=== PATIENT | female | born 1950 | race Caucasian/White ===

== ENCOUNTER 2017-05-24 10:41 | Inpatient (IN) | payer OTHER ==
[~2017-05-24] VITALS: Ht 167.6 cm; Wt 88.7 kg
[2017-05-24 11:24] LABS: HEMATOCRIT 44.3 % (34.6-47.8); HEMOGLOBIN 15.4 g/dL (11.7-16.4); WHITE BLOOD COUNT 5.5 x10^3/uL (3.4-10)
[2017-05-24] MEDS ORDERED: ASPIRIN 81 MG TABLET CHEW ONE (11:35)
[2017-05-24 11:36] LABS: ASPARTATE AMINO TRANSFERASE 11 U/L (15-37); BLOOD UREA NITROGEN 18 mg/dL (7-18)
[2017-05-24] MEDS ORDERED: ASPIRIN 325 MG TABLET PO STA (11:48)
[2017-05-24] MEDS ORDERED: ASPIRIN 325 MG TABLET ONE (12:02)
[2017-05-24 13:42] VITALS: BP 153/94
[2017-05-24] MEDS ORDERED: DIPHENHYDRAMINE 50 MG/ML, 1ML IVPush ONE (14:00)
[2017-05-24 14:30] VITALS: BP 167/99
[2017-05-24] MEDS: SODIUM CHLORIDE 0.9% 1,000 ML IV SCH (14:33)
[2017-05-24 14:40] VITALS: BP 153/94
[2017-05-24] MEDS ORDERED: DOCUSATE 100 MG CAPSULE PO PRN (15:00)
[2017-05-24] MEDS ORDERED: POLYETHYLENE GLYCOL 17 GM PACKET PO PRN (15:00)
[2017-05-24] MEDS ORDERED: MECLIZINE 12.5 MG TABLET PO PRN (15:00)
[2017-05-24] MEDS ORDERED: hydrALAzine 20 MG/ML, 1ML IV PRN (15:00)
[2017-05-24] MEDS ORDERED: ONDANSETRON ODT 4 MG PO PRN (15:00)
[2017-05-24] MEDS: ENOXAPARIN 40 MG/0.4 ML SQ SCH (15:00)
[2017-05-24] MEDS ORDERED: ONDANSETRON 2MG/ML, 2ML IVPush PRN (15:00)
[2017-05-24] MEDS ORDERED: BISACODYL 10 MG SUPP PR PRN (15:00)
[2017-05-24] MEDS ORDERED: GADOBUTROL 10 MMOL/10 ML VIAL ONE (15:15)
[2017-05-24] MEDS: INSULIN ASPART 100 UNITS/ML, PEN SQ-INSULIN SCH ×2 (16:00→21:00)
[2017-05-24 16:54] LABS: IS PT STATUS REG ER OR PRE ER? NO
[2017-05-24 20:00] VITALS: BP 130/81
[2017-05-24] MEDS: ATORVASTATIN 20 MG TABLET PO SCH (21:00)
[2017-05-25] MEDS: SODIUM CHLORIDE 0.9% 1,000 ML IV SCH ×2 (01:19→10:10)
[2017-05-25 01:41] VITALS: BP 119/66
[2017-05-25 05:18] LABS: DAU SCREEN DISCLAIMER
[2017-05-25 05:46] LABS: BLOOD UREA NITROGEN 16 mg/dL (7-18)
[2017-05-25 05:48] LABS: HEMATOCRIT 40.4 % (34.6-47.8); HEMOGLOBIN 13.8 g/dL (11.7-16.4); WHITE BLOOD COUNT 4.8 x10^3/uL (3.4-10)
[2017-05-25 06:32] VITALS: BP 137/84
[2017-05-25] MEDS: INSULIN ASPART 100 UNITS/ML, PEN SQ-INSULIN SCH ×4 (07:00→21:00)
[2017-05-25] MEDS: ACETAMINOPHEN 325 MG TABLET PO PRN ×2 (08:46→20:38)
[2017-05-25] MEDS ORDERED: [UNRECOGNIZED DRUG - REMARK] MC SCH (09:30)
[2017-05-25] MEDS ORDERED: LORazepam 2 MG/ML, 1ML IVPush ONE (13:00)
[2017-05-25 13:07] VITALS: BP 150/91
[2017-05-25] MEDS: LISINOPRIL 5 MG TABLET PO SCH (15:00)
[2017-05-25] MEDS: ENOXAPARIN 40 MG/0.4 ML SQ SCH (16:05)
[2017-05-25] MEDS: INSULIN DETEMIR 100 UNITS/ML, PEN SQ-INSULIN SCH (17:56)
[2017-05-25 19:34] VITALS: BP 151/105
[2017-05-25] MEDS ORDERED: GADOBUTROL 7.5 MMOL/7.5 ML PFS ONE (19:44)
[2017-05-25] MEDS: ATORVASTATIN 20 MG TABLET PO SCH (20:33)
[2017-05-25] MEDS ORDERED: INSULIN ASPART 100 UNITS/ML, PEN SQ-INSULIN ONE (21:30)
[2017-05-26] MEDS: SODIUM CHLORIDE 0.9% 1,000 ML IV SCH ×3 (01:49→23:45)
[2017-05-26 02:01] VITALS: BP 127/79
[2017-05-26] MEDS: ASPIRIN 81 MG TABLET EC PO SCH (05:49)
[2017-05-26 07:00] VITALS: BP 150/99
[2017-05-26] MEDS: INSULIN DETEMIR 100 UNITS/ML, PEN SQ-INSULIN SCH ×2 (08:55→18:38)
[2017-05-26] MEDS: INSULIN ASPART 100 UNITS/ML, PEN SQ-INSULIN SCH ×4 (08:56→23:02)
[2017-05-26] MEDS: OMEGA-3/FISH OIL CAPSULE PO SCH (08:57)
[2017-05-26] MEDS: LISINOPRIL 5 MG TABLET PO SCH (09:00)
[2017-05-26] MEDS: ACETAMINOPHEN 325 MG TABLET PO PRN (10:29)
[2017-05-26] MEDS ORDERED: LORazepam 2 MG/ML, 1ML IVPush ONE (12:30)
[2017-05-26 12:40] VITALS: BP 188/112
[2017-05-26 13:55] VITALS: BP 166/81
[2017-05-26] MEDS: ENOXAPARIN 40 MG/0.4 ML SQ SCH (15:45)
[2017-05-26 20:00] VITALS: BP 167/94
[2017-05-26] MEDS ORDERED: INSULIN ASPART 100 UNITS/ML, PEN SQ-INSULIN ONE (22:30)
[2017-05-26] MEDS: ATORVASTATIN 20 MG TABLET PO SCH (23:40)
[2017-05-26] MEDS: METOPROLOL TARTRATE 25 MG TABLET PO SCH (23:41)
[2017-05-26] MEDS: LOSARTAN 50MG TABLET PO SCH (23:41)
[2017-05-26] MEDS: LORazepam 1MG TABLET PO PRN (23:55)
[2017-05-27 02:00] VITALS: BP 158/86
[2017-05-27] MEDS ORDERED: INSULIN DETEMIR 100 UNITS/ML, PEN SQ-INSULIN SCH (04:00)
[2017-05-27] MEDS: METOPROLOL TARTRATE 25 MG TABLET PO SCH ×2 (05:38→18:43)
[2017-05-27] MEDS: ASPIRIN 81 MG TABLET EC PO SCH (05:38)
[2017-05-27 05:46] LABS: BLOOD UREA NITROGEN 17 mg/dL (7-18)
[2017-05-27 07:23] VITALS: BP 139/77
[2017-05-27] MEDS: LOSARTAN 50MG TABLET PO SCH (09:15)
[2017-05-27] MEDS: OMEGA-3/FISH OIL CAPSULE PO SCH (09:15)
[2017-05-27] MEDS: INSULIN DETEMIR 100 UNITS/ML, PEN SQ-INSULIN SCH ×2 (09:16→20:55)
[2017-05-27] MEDS: INSULIN ASPART 100 UNITS/ML, PEN SQ-INSULIN SCH ×4 (09:17→20:55)
[2017-05-27 13:02] VITALS: BP 126/84
[2017-05-27] MEDS: SODIUM CHLORIDE 0.9% 1,000 ML IV SCH (14:00)
[2017-05-27] MEDS: ENOXAPARIN 40 MG/0.4 ML SQ SCH (16:32)
[2017-05-27 18:45] VITALS: BP 172/87
[2017-05-27] MEDS: LORazepam 1MG TABLET PO PRN (20:54)
[2017-05-27] MEDS: ATORVASTATIN 20 MG TABLET PO SCH (20:54)
[2017-05-28] MEDS: SODIUM CHLORIDE 0.9% 1,000 ML IV SCH ×2 (01:56→09:24)
[2017-05-28 02:10] VITALS: BP 157/88
[2017-05-28] MEDS: METOPROLOL TARTRATE 25 MG TABLET PO SCH (05:56)
[2017-05-28] MEDS: ASPIRIN 81 MG TABLET EC PO SCH (05:56)
[2017-05-28 06:50] VITALS: BP 165/78
[2017-05-28] MEDS: OMEGA-3/FISH OIL CAPSULE PO SCH (09:26)
[2017-05-28] MEDS: LOSARTAN 50MG TABLET PO SCH (09:26)
[2017-05-28] MEDS: INSULIN ASPART 100 UNITS/ML, PEN SQ-INSULIN SCH ×4 (09:27→20:11)
[2017-05-28] MEDS: INSULIN DETEMIR 100 UNITS/ML, PEN SQ-INSULIN SCH ×2 (09:27→20:11)
[2017-05-28] MEDS: LORazepam 1MG TABLET PO PRN ×2 (09:36→20:10)
[2017-05-28 13:24] VITALS: BP 167/94
[2017-05-28] MEDS: ENOXAPARIN 40 MG/0.4 ML SQ SCH (14:45)
[2017-05-28 18:34] VITALS: BP 145/90
[2017-05-28] MEDS: ATORVASTATIN 20 MG TABLET PO SCH (20:10)
[2017-05-28] MEDS ORDERED: INSULIN ASPART 100 UNITS/ML, PEN SQ-INSULIN ONE (21:30)
[2017-05-29 03:50] VITALS: BP 185/102
[2017-05-29] MEDS ORDERED: hydrALAzine 20 MG/ML, 1ML IV PRN (04:30)
[2017-05-29] MEDS: ASPIRIN 81 MG TABLET EC PO SCH (04:46)
[2017-05-29 07:00] VITALS: BP 171/88
[2017-05-29] MEDS: ACETAMINOPHEN 325 MG TABLET PO PRN (07:25)
[2017-05-29] MEDS: OMEGA-3/FISH OIL CAPSULE PO SCH (08:38)
[2017-05-29] MEDS: LOSARTAN 50MG TABLET PO SCH (08:38)
[2017-05-29] MEDS: INSULIN DETEMIR 100 UNITS/ML, PEN SQ-INSULIN SCH (08:39)
[2017-05-29] MEDS: INSULIN ASPART 100 UNITS/ML, PEN SQ-INSULIN SCH ×2 (08:40→11:00)
[2017-05-29] MEDS ORDERED: INSU100I28 SQ-INSULIN (09:57)
[2017-05-29] MEDS ORDERED: DOCU-131 PO (09:57)
[2017-05-29] MEDS ORDERED: HYDR12.53 PO (09:57)
[2017-05-29] MEDS ORDERED: ATOR20TA9 PO (09:57)
[2017-05-29] MEDS ORDERED: INSU100I18 SQ-INSULIN (09:57)
[2017-05-29] MEDS ORDERED: LOSA50TA2 PO (09:57)
[2017-05-29] MEDS ORDERED: ASPI-621 PO (09:57)
[2017-05-29] MEDS ORDERED: PNEUMOCOCCAL 23 VACCINE IM-VACC ONE (11:30)
[2017-05-29] MEDS ORDERED: LORA-446 PO (12:39)
== END 2017-05-29 12:30 | disposition home or self-care (01) | DRG 60 ==
LOC: ED 11:48 → EDIP 11:49 → ED 11:57 → 4WST 13:07 → DCLOUNGE 05-29 12:15
PROVIDERS: ADMIT Hospitalist; ATTEND Hospitalist
PROC: 5A09357 Assistance with Respiratory Ventilation, Less than 24 Consecutive Hours, Continuous Positive Airway Pressure (ICD-10-PCS; principal; 2017-05-25)
PROC: 5A09357 Assistance with Respiratory Ventilation, Less than 24 Consecutive Hours, Continuous Positive Airway Pressure (ICD-10-PCS; 2017-05-26)
PROC: 5A09357 Assistance with Respiratory Ventilation, Less than 24 Consecutive Hours, Continuous Positive Airway Pressure (ICD-10-PCS; 2017-05-28)
PROC: 5A09357 Assistance with Respiratory Ventilation, Less than 24 Consecutive Hours, Continuous Positive Airway Pressure (ICD-10-PCS; 2017-05-29)
DX: G35 Multiple sclerosis (principal); R13.10 Dysphagia, unspecified; E11.9 Type 2 diabetes mellitus without complications; E78.1 Pure hyperglyceridemia; F41.0 Panic disorder [episodic paroxysmal anxiety]; F80.81 Childhood onset fluency disorder; I10 Essential (primary) hypertension; M21.371 Foot drop, right foot; M50.30 Other cervical disc degeneration, unspecified cervical region; R27.0 Ataxia, unspecified; Z79.4 Long term (current) use of insulin; Z82.49 Family history of ischemic heart disease and other diseases of the circulatory system; Z91.14 Patient's other noncompliance with medication regimen; Z91.041 Radiographic dye allergy status; Z90.710 Acquired absence of both cervix and uterus
CPT/HCPCS: 36415; 70450; 70544; 70547; 70553; 72156; 72157; 80047; 80048; 80053; 80061; 80307; 81003; 82947; 82962; 83036; 83735; 84100; 84443; 84484; 85025; 85520; 85610; 85651; 85730; 90732; 93306; A9585; J1650; J1815; J2930; 92523-GN; G0479; J0360; J2060; J7030

== ENCOUNTER 2017-11-07 13:05 | Inpatient (IN) | payer OTHER ==
[~2017-11-07] VITALS: Ht 167.6 cm; Wt 91.0 kg
[~2017-11-07 13:05] MED LIST: ASPI-621 PO; ATOR20TA9 PO; DOCU-131 PO; HYDR12.53 PO; INSU100I18 SQ-INSULIN; INSU100I28 SQ-INSULIN; LORA-446 PO; LOSA50TA2 PO
[2017-11-07] MEDS ORDERED: SODIUM CHLORIDE 0.9% 1,000 ML IV ONE (14:13)
[2017-11-07] MEDS ORDERED: LORazepam 2 MG/ML, 1ML IVPush ONE (14:30)
[2017-11-07] MEDS ORDERED: SODIUM CHLORIDE FLUSH 10ML SYR IVF ONE (14:30)
[2017-11-07] MEDS ORDERED: LORazepam 2 MG/ML, 1ML ONE (14:35)
[2017-11-07 14:41] LABS: ALANINE AMINOTRANSFERASE 35 U/L (12-78); ALBUMIN 3.5 g/dL (3.4-5.0); ANION GAP 10 mmol/L (5-15); CALCIUM 9.1 mg/dL (8.5-10.1); CHLORIDE 102 mmol/L (98-107); CREATININE 0.96 mg/dL (0.55-1.02)
[2017-11-07 14:43] LABS: ALKALINE PHOSPHATASE 73 U/L (45-117); BILIRUBIN,TOTAL 0.4 mg/dL (0.2-1.0); TOTAL PROTEIN 7.1 g/dL (6.4-8.2)
[2017-11-07 14:47] LABS: HEMOGLOBIN A1C 9.6 % (4.2-6.3)
[2017-11-07 15:18] LABS: ACETONE, SERUM Negative (Negative)
[2017-11-07 15:23] LABS: MICROSCOPIC NOT IND
[2017-11-07 15:26] LABS: CULTURE INDICATED? NO
[2017-11-07 15:37] LABS: BASOPHILS # (AUTO) 0.01 x10^3/uL (0-0.1); BASOPHILS % (AUTO) 0 % (0-1); EOSINOPHILS % (AUTO) 1 % (1-7); LYMPHOCYTES # (AUTO) 1.45 x10^3/uL (1-3.4); LYMPHOCYTES % (AUTO) 13 % (22-44); MD NO; MEAN CORPUSCULAR HEMOGLOBIN 30.8 pg (27.0-34.8); MEAN CORPUSCULAR HGB CONC 33.5 g/dL (32.4-35.8); MEAN PLATELET VOLUME 8.5 fL (7.4-10.4); MONOCYTES % (AUTO) 5 % (2-9); NEUTROPHILS # (AUTO) 9.12 x10^3/uL (1.8-6.8); NEUTROPHILS % (AUTO) 82 % (42-75); PLATELET COUNT 315 x10^3/uL (130-400); RED BLOOD COUNT 4.87 x10^6/uL (3.82-5.3)
[2017-11-07] MEDS ORDERED: ONDANSETRON 2MG/ML, 2ML IVPush PRN (16:30)
[2017-11-07] MEDS ORDERED: LABETALOL 5MG/ML, 20ML IVPush PRN (16:30)
[2017-11-07] MEDS ORDERED: ONDANSETRON ODT 4 MG PO PRN (16:30)
[2017-11-07 16:39] LABS: FREE T4 (FREE THYROXINE) 1.06 ng/dL (0.76-1.46)
[2017-11-07 17:36] VITALS: BP 138/78
[2017-11-07 18:26] VITALS: BP 147/83
[2017-11-07] MEDS: ENOXAPARIN 40 MG/0.4 ML SQ SCH (18:42)
[2017-11-07] MEDS: SODIUM CHLORIDE 0.9% 1,000 ML IV SCH (18:42)
[2017-11-07] MEDS ORDERED: magic mouthwash PO (19:49)
[2017-11-07 20:00] VITALS: BP 127/75
[2017-11-07] MEDS ORDERED: maalox/diphenh/lido/sucralfate 5 ML PO PRN ×2 (20:00→20:30)
[2017-11-07 20:01] VITALS: BP 134/85
[2017-11-07 20:02] VITALS: BP 132/84
[2017-11-07] MEDS: ATORVASTATIN 20 MG TABLET PO SCH (20:29)
[2017-11-07] MEDS: LORazepam 1MG TABLET PO PRN (20:29)
[2017-11-07] MEDS: FLUCONAZOLE 200 MG/100 ML 100 ML IV SCH (20:30)
[2017-11-07] MEDS: INSULIN LISPRO 100 UNITS/ML, PEN SQ-INSULIN SCH (22:39)
[2017-11-07] MEDS: INSULIN GLARGINE 100 UNITS/ML, PEN SQ-INSULIN SCH (22:40)
[2017-11-08 02:00] VITALS: BP 126/75
[2017-11-08] MEDS: SODIUM CHLORIDE 0.9% 1,000 ML IV SCH ×2 (03:55→14:36)
[2017-11-08 05:32] LABS: ALBUMIN 2.7 g/dL (3.4-5.0); ANION GAP 9 mmol/L (5-15); CALCIUM 7.8 mg/dL (8.5-10.1); CHLORIDE 110 mmol/L (98-107)
[2017-11-08 05:36] LABS: ALANINE AMINOTRANSFERASE 28 U/L (12-78); ALKALINE PHOSPHATASE 55 U/L (45-117); BILIRUBIN,TOTAL 0.5 mg/dL (0.2-1.0); CREATININE 0.69 mg/dL (0.55-1.02); TOTAL PROTEIN 5.7 g/dL (6.4-8.2)
[2017-11-08 05:42] LABS: BASOPHILS # (AUTO) 0.02 x10^3/uL (0-0.1); BASOPHILS % (AUTO) 0 % (0-1); EOSINOPHILS # (AUTO) 0.18 x10^3/uL (0-0.4); EOSINOPHILS % (AUTO) 2 % (1-7); LYMPHOCYTES # (AUTO) 2.07 x10^3/uL (1-3.4); LYMPHOCYTES % (AUTO) 27 % (22-44); MD NO; MEAN CORPUSCULAR HGB CONC 33.9 g/dL (32.4-35.8); MEAN CORPUSCULAR VOLUME 91.6 fL (80-100); MEAN PLATELET VOLUME 7.8 fL (7.4-10.4); MONOCYTES # (AUTO) 0.62 x10^3/uL (0.2-0.8); MONOCYTES % (AUTO) 8 % (2-9); NEUTROPHILS # (AUTO) 4.75 x10^3/uL (1.8-6.8); NEUTROPHILS % (AUTO) 62 % (42-75); PLATELET COUNT 274 x10^3/uL (130-400); RED BLOOD COUNT 4.11 x10^6/uL (3.82-5.3); RED CELL DISTRIBUTION WIDTH 13.1 % (9.6-15.2)
[2017-11-08] MEDS: ASPIRIN 81 MG TABLET EC PO SCH (06:07)
[2017-11-08] MEDS: INSULIN LISPRO 100 UNITS/ML, PEN SQ-INSULIN SCH ×4 (07:00→20:37)
[2017-11-08] MEDS ORDERED: POTASSIUM CHLORIDE 20 MEQ TAB.ER.PRT PO ONE (07:00)
[2017-11-08 07:02] VITALS: BP 128/73
[2017-11-08] MEDS: HYDROCHLOROTHIAZIDE 12.5 MG CAPSULE PO SCH (09:00)
[2017-11-08] MEDS ORDERED: ACETAMINOPHEN 325 MG TABLET PO PRN (09:00)
[2017-11-08] MEDS: LOSARTAN 50MG TABLET PO SCH (09:00)
[2017-11-08] MEDS: INSULIN GLARGINE 100 UNITS/ML, PEN SQ-INSULIN SCH ×2 (09:01→20:37)
[2017-11-08 10:18] LABS: CLOSTRIDIUM DIFFICILE ANTIGEN NEGATIVE; CLOSTRIDIUM DIFFICILE TOXIN NEGATIVE (Negative)
[2017-11-08 13:08] VITALS: BP 120/77
[2017-11-08] MEDS: LORazepam 1MG TABLET PO PRN (14:36)
[2017-11-08] MEDS ORDERED: ESCI20TA10 PO (15:25)
[2017-11-08] MEDS ORDERED: SODIUM CHLORIDE 0.9% 1,000 ML IV SCH (16:13)
[2017-11-08] MEDS: CITALOPRAM 20 MG TABLET PO SCH (16:33)
[2017-11-08] MEDS: ENOXAPARIN 40 MG/0.4 ML SQ SCH (19:15)
[2017-11-08 19:56] VITALS: BP 136/75
[2017-11-08] MEDS: FLUCONAZOLE 200 MG/100 ML 100 ML IV SCH (20:36)
[2017-11-08] MEDS: ATORVASTATIN 20 MG TABLET PO SCH (20:36)
[2017-11-09] MEDS: LORazepam 1MG TABLET PO PRN (01:05)
[2017-11-09 01:51] VITALS: BP 110/69
[2017-11-09] MEDS: ASPIRIN 81 MG TABLET EC PO SCH (05:04)
[2017-11-09] MEDS: INSULIN LISPRO 100 UNITS/ML, PEN SQ-INSULIN SCH (07:00)
[2017-11-09 07:38] VITALS: BP 148/91
[2017-11-09 08:12] LABS: BASOPHILS # (AUTO) 0.02 x10^3/uL (0-0.1); BASOPHILS % (AUTO) 0 % (0-1); EOSINOPHILS # (AUTO) 0.19 x10^3/uL (0-0.4); EOSINOPHILS % (AUTO) 3 % (1-7); LYMPHOCYTES # (AUTO) 1.77 x10^3/uL (1-3.4); LYMPHOCYTES % (AUTO) 28 % (22-44); MD NO; MEAN CORPUSCULAR HEMOGLOBIN 30.7 pg (27.0-34.8); MEAN CORPUSCULAR HGB CONC 33.3 g/dL (32.4-35.8); MEAN PLATELET VOLUME 7.6 fL (7.4-10.4); MONOCYTES # (AUTO) 0.52 x10^3/uL (0.2-0.8); MONOCYTES % (AUTO) 8 % (2-9); NEUTROPHILS # (AUTO) 3.84 x10^3/uL (1.8-6.8); NEUTROPHILS % (AUTO) 61 % (42-75); PLATELET COUNT 269 x10^3/uL (130-400); RED BLOOD COUNT 4.43 x10^6/uL (3.82-5.3)
[2017-11-09 08:24] LABS: ANION GAP 9 mmol/L (5-15); CALCIUM 8.4 mg/dL (8.5-10.1); CHLORIDE 106 mmol/L (98-107)
[2017-11-09 08:25] LABS: CREATININE 0.69 mg/dL (0.55-1.02)
[2017-11-09] MEDS: LOSARTAN 50MG TABLET PO SCH (10:04)
[2017-11-09] MEDS: HYDROCHLOROTHIAZIDE 12.5 MG CAPSULE PO SCH (10:04)
[2017-11-09] MEDS: CITALOPRAM 20 MG TABLET PO SCH (10:04)
[2017-11-09] MEDS: INSULIN GLARGINE 100 UNITS/ML, PEN SQ-INSULIN SCH (10:05)
== END 2017-11-09 11:47 | disposition home or self-care (01) | DRG 74 ==
LOC: ED 14:27 → EDIP 14:59 → 5SO 17:20 → 4WST 18:19 → DCLOUNGE 11-09 11:36
PROVIDERS: ADMIT Internal Medicine Pulmonary Disease; ATTEND Internal Medicine Pulmonary Disease
DX: G90.8 Other disorders of autonomic nervous system (principal); E11.43 Type 2 diabetes mellitus with diabetic autonomic (poly)neuropathy; E11.65 Type 2 diabetes mellitus with hyperglycemia; I11.0 Hypertensive heart disease with heart failure; I50.30 Unspecified diastolic (congestive) heart failure; B35.6 Tinea cruris; D72.829 Elevated white blood cell count, unspecified; W18.30XA Fall on same level, unspecified, initial encounter; G35 Multiple sclerosis; B37.9 Candidiasis, unspecified; E78.5 Hyperlipidemia, unspecified; E86.0 Dehydration; F29 Unspecified psychosis not due to a substance or known physiological condition; G47.33 Obstructive sleep apnea (adult) (pediatric); R55 Syncope and collapse; K21.9 Gastro-esophageal reflux disease without esophagitis; T38.0X5A Adverse effect of glucocorticoids and synthetic analogues, initial encounter; R29.6 Repeated falls; Z66 Do not resuscitate; Z82.49 Family history of ischemic heart disease and other diseases of the circulatory system; Z79.4 Long term (current) use of insulin; Z85.43 Personal history of malignant neoplasm of ovary; Z86.73 Personal history of transient ischemic attack (TIA), and cerebral infarction without residual deficits; Z90.710 Acquired absence of both cervix and uterus; Z88.5 Allergy status to narcotic agent; Z88.6 Allergy status to analgesic agent; Y93.89 Activity, other specified; Y92.098 Other place in other non-institutional residence as the place of occurrence of the external cause; Y99.8 Other external cause status
CPT/HCPCS: 36415; 80048; 80053; 81003; 82010; 82040; 82962; 83036; 83735; 84100; 84439; 85025; 87324; 93005; 93306; 93880; 96361; 96374; J1650; J1450; J1815; J2060; J7030

== ENCOUNTER 2018-03-25 16:23 | Emergency (ER) | payer MEDICARE ==
[~2018-03-25] VITALS: Ht 165.1 cm; Wt 89.3 kg
[~2018-03-25 16:23] MED LIST changes: +ESCI20TA10 PO; +magic mouthwash PO
[2018-03-25] MEDS ORDERED: SODIUM CHLORIDE FLUSH 10ML SYR IVF ONE (17:00)
[2018-03-25 17:50] LABS: BASOPHILS # (AUTO) 0.04 x10^3/uL (0-0.1); BASOPHILS % (AUTO) 1 % (0-1); EOSINOPHILS # (AUTO) 0.24 x10^3/uL (0-0.4); EOSINOPHILS % (AUTO) 4 % (1-7); LYMPHOCYTES # (AUTO) 0.36 x10^3/uL (1-3.4); LYMPHOCYTES % (AUTO) 6 % (22-44); MD NO; MEAN CORPUSCULAR HEMOGLOBIN 32.3 pg (27.0-34.8); MEAN CORPUSCULAR HGB CONC 34.7 g/dL (32.4-35.8); MEAN CORPUSCULAR VOLUME 92.9 fL (80-100); MEAN PLATELET VOLUME 8.9 fL (7.4-10.4); MONOCYTES # (AUTO) 0.67 x10^3/uL (0.2-0.8); MONOCYTES % (AUTO) 12 % (2-9); NEUTROPHILS # (AUTO) 4.32 x10^3/uL (1.8-6.8); NEUTROPHILS % (AUTO) 77 % (42-75); PLATELET COUNT 271 x10^3/uL (130-400); RED BLOOD COUNT 4.89 x10^6/uL (3.82-5.3); RED CELL DISTRIBUTION WIDTH 13.2 % (9.6-15.2)
[2018-03-25 17:58] LABS: ALBUMIN 3.8 g/dL (3.4-5.0); ANION GAP 7 mmol/L (5-15); CALCIUM 8.9 mg/dL (8.5-10.1); CHLORIDE 107 mmol/L (98-107); CREATININE 1.05 mg/dL (0.55-1.02)
[2018-03-25] MEDS ORDERED: OXYcodone/APAP 5/325MG TABLET PO ONE (19:00)
[2018-03-25] MEDS ORDERED: LORazepam 1MG TABLET PO ONE (19:00)
[2018-03-25] MEDS ORDERED: OXYcodone/APAP 5/325MG TABLET ONE (19:17)
[2018-03-25] MEDS ORDERED: LORazepam 1MG TABLET ONE (19:17)
[2018-03-25 20:05] VITALS: BP 123/75
== END 2018-03-25 20:57 | disposition home or self-care (01) ==
LOC: ED 20:51
DX: M71.21 Synovial cyst of popliteal space [Baker], right knee (principal); F41.1 Generalized anxiety disorder; E11.9 Type 2 diabetes mellitus without complications; Z86.73 Personal history of transient ischemic attack (TIA), and cerebral infarction without residual deficits
CPT/HCPCS: 36415; 71045; 80048; 82040; 83880; 84484; 85025; 93005; 99285

== ENCOUNTER 2018-12-14 11:00 | Observation (INO) | payer MEDICARE ==
[~2018-12-14] VITALS: Ht 167.6 cm; Wt 83.7 kg
[~2018-12-14 11:00] MED LIST changes: -ASPI-621 PO; +ASPI81TA45 PO; +ATOR20TA37 PO; -ATOR20TA9 PO; +HYDR12.517 PO; -HYDR12.53 PO
[2018-12-14] MEDS ORDERED: ASPIRIN 81 MG TABLET CHEW PO ONE (11:30)
[2018-12-14] MEDS ORDERED: ASPIRIN 81 MG TABLET CHEW ONE (12:09)
[2018-12-14 12:15] LABS: BASOPHILS # (AUTO) 0.01 x10^3/uL (0-0.1); BASOPHILS % (AUTO) 0 % (0-1); EOSINOPHILS # (AUTO) 0.08 x10^3/uL (0-0.4); EOSINOPHILS % (AUTO) 1 % (1-7); LYMPHOCYTES # (AUTO) 0.28 x10^3/uL (1-3.4); LYMPHOCYTES % (AUTO) 4 % (22-44); MD NO; MEAN CORPUSCULAR HGB CONC 32.7 g/dL (32.4-35.8); MEAN CORPUSCULAR VOLUME 94.8 fL (80-100); MEAN PLATELET VOLUME 9.3 fL (7.4-10.4); MONOCYTES # (AUTO) 0.48 x10^3/uL (0.2-0.8); MONOCYTES % (AUTO) 6 % (2-9); NEUTROPHILS # (AUTO) 7.17 x10^3/uL (1.8-6.8); NEUTROPHILS % (AUTO) 89 % (42-75); PLATELET COUNT 235 x10^3/uL (130-400); RED BLOOD COUNT 5.06 x10^6/uL (3.82-5.3); RED CELL DISTRIBUTION WIDTH 12.7 % (9.6-15.2)
[2018-12-14 12:29] LABS: ALBUMIN 3.6 g/dL (3.4-5.0); CALCIUM 8.2 mg/dL (8.5-10.1); CHLORIDE 106 mmol/L (98-107)
--- NOTE | 2018-12-14 12:35 | NUR ---
INTERMITTENT CP X2 DAYS. AWOKE WITH IT THIS MORNING RADIATING TO BACK AND SHOULDERS.
[2018-12-14 12:37] LABS: ALANINE AMINOTRANSFERASE 28 U/L (12-78); ALKALINE PHOSPHATASE 85 U/L (45-117); ANION GAP 8 mmol/L (5-15); BILIRUBIN,TOTAL 0.4 mg/dL (0.2-1.0); CREATININE 0.81 mg/dL (0.55-1.02); TOTAL PROTEIN 6.7 g/dL (6.4-8.2); TROPONIN I < 0.015 ng/mL (0.000-0.045)
--- NOTE | 2018-12-14 13:25 | NUR ---
NO CP AT THIS TIME. AWARE OF INTENTION TO ADMIT. CONTINUE TO MONITOR
--- NOTE | 2018-12-14 13:52 | NUR ---
REPORT TO TERESA DOMINGO. PT TO BE TRANSPORTED TO FLOOR
[2018-12-14 14:25] VITALS: BP 146/83
[2018-12-14] MEDS ORDERED: ACETAMINOPHEN 325 MG TABLET PO PRN (15:30)
[2018-12-14] MEDS ORDERED: ONDANSETRON 2MG/ML, 2ML IVPush PRN (15:30)
[2018-12-14] MEDS ORDERED: CYCLOBENZAPRINE 10 MG TABLET PO PRN (15:30)
[2018-12-14] MEDS ORDERED: hydrALAzine 20 MG/ML, 1ML IVPush PRN (15:30)
[2018-12-14] MEDS ORDERED: DOCUSATE 100 MG CAPSULE PO PRN (15:30)
[2018-12-14] MEDS: INSULIN LISPRO 100 UNITS/ML, PEN SQ-INSULIN SCH ×2 (17:03→21:35)
[2018-12-14 18:48] LABS: TROPONIN I < 0.015 ng/mL (0.000-0.045)
[2018-12-14] MEDS ORDERED: ATORVASTATIN 20 MG TABLET PO SCH (21:00)
[2018-12-14] MEDS ORDERED: INSULIN GLARGINE 100 UNITS/ML, PEN SQ-INSULIN SCH (21:00)
[2018-12-14 21:24] VITALS: BP 175/97
[2018-12-14 21:49] VITALS: BP 179/102
[2018-12-15 00:19] VITALS: BP 144/80
[2018-12-15 00:40] LABS: TROPONIN I < 0.015 ng/mL (0.000-0.045)
[2018-12-15 05:40] LABS: CHLORIDE 106 mmol/L (98-107)
[2018-12-15 05:56] LABS: HEMOGLOBIN A1C 11.9 % (4.2-6.3)
[2018-12-15] MEDS ORDERED: ASPIRIN 81 MG TABLET EC PO SCH (06:00)
[2018-12-15 06:01] LABS: ANION GAP 7 mmol/L (5-15); CALCIUM 8.6 mg/dL (8.5-10.1); CHOLESTEROL, TOTAL 211 mg/dL (140-239); CREATININE 0.64 mg/dL (0.55-1.02); HDL CHOL % 25 % (28-40); HDL CHOLESTEROL (DIRECT) 53 mg/dL (40-60); LDL CHOLESTEROL,CALCULATED 129 mg/dL (54-169); LDL/HDL RATIO 2.4 (0.5-3.0); TRIGLYCERIDES 147 mg/dL (50-200); VLDL CHOLESTEROL 29 mg/dL (0-25)
[2018-12-15] MEDS ORDERED: [UNRECOGNIZED DRUG - OTHER] PO (08:17)
[2018-12-15 08:28] VITALS: BP 136/82
[2018-12-15] MEDS: INSULIN LISPRO 100 UNITS/ML, PEN SQ-INSULIN SCH ×2 (08:32→11:51)
[2018-12-15] MEDS ORDERED: REGADENOSON 0.4 MG/5 ML SYRINGE ONE (08:43)
[2018-12-15] MEDS ORDERED: HYDROCHLOROTHIAZIDE 12.5 MG CAPSULE PO SCH (09:00)
[2018-12-15] MEDS ORDERED: LOSARTAN 50MG TABLET PO SCH (09:00)
[2018-12-15 15:16] VITALS: BP 132/80
[2018-12-15] MEDS ORDERED: INSULIN LISPRO 100 UNITS/ML, PEN SQ-INSULIN SCH (16:00)
== END 2018-12-15 17:00 | disposition home or self-care (01) ==
LOC: ED 11:45 → EDIP 12:49 → INTOOBSV 12:49 → 5SO 14:09
PROVIDERS: ADMIT Internal Medicine; ATTEND Internal Medicine
DX: R07.89 Other chest pain (principal); E11.65 Type 2 diabetes mellitus with hyperglycemia; I10 Essential (primary) hypertension; E78.5 Hyperlipidemia, unspecified; G35 Multiple sclerosis; G47.33 Obstructive sleep apnea (adult) (pediatric); K21.9 Gastro-esophageal reflux disease without esophagitis; Z79.4 Long term (current) use of insulin; Z86.73 Personal history of transient ischemic attack (TIA), and cerebral infarction without residual deficits; Z90.710 Acquired absence of both cervix and uterus; Z88.2 Allergy status to sulfonamides; Z88.6 Allergy status to analgesic agent; Z91.041 Radiographic dye allergy status; Z85.43 Personal history of malignant neoplasm of ovary
CPT/HCPCS: 36415; 71045; 78452; 80048; 80053; 80061; 82962; 83036; 83690; 84443; 84484; 85025; 93005; 93017; 93306; 96372; 96374; 99284; A9502; C9898; G0378; J0360; J1815; J2785

== ENCOUNTER 2020-04-28 11:26 | Inpatient (IN) | payer MEDICARE ==
[~2020-04-28] VITALS: Ht 167.6 cm; Wt 81.0 kg
[~2020-04-28 11:26] MED LIST changes: +[UNRECOGNIZED DRUG - OTHER] PO
--- NOTE | 2020-04-28 11:45 | NUR ---
INITIAL PT CONTACT. PT PRESENTS TO ED C/O N/V FOR 4 DAYS. PT STATES SHE IS UNABLE TO EAT ANYTHING, ABLE TO DRINK WATER. PT STATES THE PAIN IS "BURNING" AND THE VOMIT "HAS BEEN BILE COLOR, BUT GOTTEN DARKER, LIKE BROWN". PT PLACED ON CONTINUOUS PULSE OX AND ETCHER PHOTOENGRAVING. BLAKET PROVIDED. NO ADDITIONAL NEEDS AT THIS TIME. FALL PRECAUTIONS IN PLACE, SISTER AT BEDSIDE. WILL CONTINUE TO MONITOR.
[2020-04-28] MEDS ORDERED: FAMOTIDINE 20 MG/2 ML IVPush ONE (12:00)
[2020-04-28] MEDS ORDERED: SODIUM CHLORIDE FLUSH 10ML SYR IVF ONE (12:00)
[2020-04-28] MEDS ORDERED: ONDANSETRON 2MG/ML, 2ML IVPush ONE ×2 (12:00→14:00)
[2020-04-28] MEDS ORDERED: MAALOX/HYOSCYAMINE/LIDOCAINE 45 ML BTL PO ONE (12:00)
[2020-04-28] MEDS ORDERED: SODIUM CHLORIDE 0.9% 1,000ML IVBOLUS ONE (12:00)
[2020-04-28] MEDS ORDERED: MAALOX/HYOSCYAMINE/LIDOCAINE 45 ML BTL ONE (12:02)
[2020-04-28] MEDS ORDERED: FAMOTIDINE 20 MG/2 ML ONE (12:02)
[2020-04-28] MEDS ORDERED: ONDANSETRON 2MG/ML, 2ML ONE (12:02)
[2020-04-28 12:23] LABS: CHLORIDE 97 mmol/L (98-107)
[2020-04-28 12:29] LABS: BASOPHILS % (AUTO) 0 % (0-1); EOSINOPHILS % (AUTO) 0 % (1-7); LYMPHOCYTES % (AUTO) 7 % (22-44); MEAN CORPUSCULAR HEMOGLOBIN 31.2 pg (27.0-34.8); MEAN CORPUSCULAR HGB CONC 33.5 g/dL (32.4-35.8); MEAN PLATELET VOLUME 9.1 fL (7.4-10.4); MONOCYTES % (AUTO) 12 % (2-9); NEUTROPHILS % (AUTO) 81 % (42-75); PLATELET COUNT 387 x10^3/uL (130-400); RED BLOOD COUNT 5.19 x10^6/uL (3.82-5.3); RED CELL DISTRIBUTION WIDTH 13.3 % (9.6-15.2)
[2020-04-28 12:33] LABS: ALANINE AMINOTRANSFERASE 16 U/L (12-78); ALBUMIN 3.9 g/dL (3.4-5.0); ALKALINE PHOSPHATASE 74 U/L (45-117); ANION GAP 15 mmol/L (5-15); BILIRUBIN,TOTAL 0.5 mg/dL (0.2-1.0); CALCIUM 11.7 mg/dL (8.5-10.1); CREATININE 1.64 mg/dL (0.55-1.02); TOTAL PROTEIN 8.1 g/dL (6.4-8.2); TROPONIN I < 0.015 ng/mL (0.000-0.045)
[2020-04-28 12:38] LABS: MD NO
--- NOTE | 2020-04-28 12:56 | NUR ---
BREAK RN: PT C.O INCREASE PAIN, WILL REPORT TO MD, EXPLAINED NEED FOR URINE. PT VERBALIZED UNDERSTANDING
[2020-04-28] MEDS ORDERED: MORPHINE SULFATE 4 MG/ML, 1ML ONE ×2 (12:58→19:34)
[2020-04-28] MEDS: MORPHINE SULFATE 4 MG/ML, 1ML IVPush PRN ×2 (13:07→19:43)
--- NOTE | 2020-04-28 13:16 | NUR ---
PT TO CT
--- NOTE | 2020-04-28 13:25 | NUR ---
PT RETURNED FROM CT. PLACED ON CONTINUOUS PULSE OX, NOTED TO BE 87-88% ON ROOM AIR FOLLOWING MEDICATION ADMINISTRATION. IMPROVED AFTER PT PLACED ON 2L NASAL CANNULA.
[2020-04-28 13:35] LABS: MICROSCOPIC NOT IND
[2020-04-28] MEDS ORDERED: METOCLOPRAMIDE 5 MG/ML, 2ML IVPush ONE (14:00)
[2020-04-28] MEDS ORDERED: SODIUM CHLORIDE 0.9% 1,000 ML IV ONE (14:00)
--- NOTE | 2020-04-28 14:02 | NUR ---
PT SITTING UPRIGHT ON GURNEY. PT STATES THAT THE PAIN IS "REALLY BAD WHEN I DRINK WATER, BUT FINE IF IM NOT DOING ANYTHING", ERP AWARE. PT DENIES ANY NEEDS AT THIS TIME. SISTER AT BEDSIDE, CALL LIGHT WITHIN REACH.
[2020-04-28] MEDS ORDERED: METOCLOPRAMIDE 5 MG/ML, 2ML ONE (14:17)
--- NOTE | 2020-04-28 14:40 | NUR ---
PT UP TO BATHROOM WITH THIS RN AND SISTER.
[2020-04-28] MEDS ORDERED: PANTOPRAZOLE 40 MG IV ONE (15:56)
--- NOTE | 2020-04-28 16:00 | NUR ---
PT SITTING UPRIGHT ON GURNEY WITH EYES CLOSED. SISTER AT BESIDE. PT REPORTS IMPROVED PAIN. DENIES ANY NEEDS AT THIS TIME. WILL CONTINUE TO MONITOR. VSS, NAD. CALL LIGHT WITHIN REACH.
[2020-04-28] MEDS: PANTOPRAZOLE 40 MG IV IVPush SCH (16:05)
[2020-04-28] MEDS ORDERED: METOCLOPRAMIDE 5 MG/ML, 2ML IVPush PRN (16:30)
[2020-04-28] MEDS ORDERED: ONDANSETRON 2MG/ML, 2ML IVPush PRN (16:30)
[2020-04-28] MEDS ORDERED: PROMETHAZINE 25 MG/ML, 1ML IM PRN (16:30)
[2020-04-28] MEDS ORDERED: ONDANSETRON ODT 4 MG PO PRN (16:30)
[2020-04-28] MEDS: SODIUM CHLORIDE 0.9% 1,000 ML IV SCH (16:38)
--- NOTE | 2020-04-28 16:39 | NUR ---
THROUGHPUT RN: HOSPITAL BED ORDERED.
--- NOTE | 2020-04-28 17:10 | NUR ---
PT TO IMAGING
[2020-04-28] MEDS ORDERED: ENOXAPARIN 40 MG/0.4 ML ONE (17:25)
[2020-04-28] MEDS: ENOXAPARIN 40 MG/0.4 ML SQ SCH (17:33)
[2020-04-28] MEDS ORDERED: OMNIPAQUE 350 MG/ML, 150 ML BOTTLE ONE (17:38)
--- NOTE | 2020-04-28 18:00 | NUR ---
PT PLACED ON HOSPITAL BED RESTING COMFORTABLY WITH EYES CLOSED, NAD, VSS. PT DENIES ANY NEEDS AT THIS TIME. CALL LIGHT IN REACH. WILL CONTINUE TO MONITOR.
--- NOTE | 2020-04-28 18:43 | NUR ---
bedside report from ariadne DOMINGO, pt care transferred at this time.
--- NOTE | 2020-04-28 19:27 | NUR ---
pt nad, resting on hospital bed, sister at bs, given bs commode for ease, meds ordered from pharmacy, provided water for comfort, wctm. waiting for admit bed
--- NOTE | 2020-04-28 19:30 | NUR ---
Pt sister, Meka
--- NOTE | 2020-04-28 21:04 | NUR ---
PT RESTING ON HOSPITAL BED, NAD, EYES CLOSED, EVEN AND UNLABORED RESPIRATIONS. APPEARS COMFORTABLE, WCTM.
[2020-04-28] MEDS ORDERED: ATORVASTATIN 20 MG TABLET ONE (22:06)
[2020-04-28] MEDS: ATORVASTATIN 20 MG TABLET PO SCH (22:16)
[2020-04-28] MEDS: INSULIN GLARGINE 100 UNITS/ML, PEN SQ-INSULIN SCH (22:20)
--- NOTE | 2020-04-28 22:20 | NUR ---
LATE ENTRY D/T PT CARE: PT MEDICATED PER MAR, ASSISTED TO RESTROOM, PT NOTED TO BE SLIGHTLY UNSTEADY ON FEET, AMBULATED WITH STANDY ASSIST. PT BACK TO HOSPITAL BED, NAD. DENIES ADDITIONAL NEEDS. WCTM. WAITING FOR ADMIT BED.
[2020-04-28] MEDS: INSULIN LISPRO 100 UNITS/ML, PEN SQ-INSULIN SCH (22:21)
--- NOTE | 2020-04-28 23:32 | NUR ---
pt provided chicken broth to try and eat some. pt nad, report called to chelsey solomon, pt care to be transferred upon arrival to the floor. wctm, denies additional needs
[2020-04-29] MEDS: SODIUM CHLORIDE 0.9% 1,000 ML IV SCH ×3 (01:04→17:02)
[2020-04-29] MEDS: FINGOLIMOD MC SCH ×2 (01:19→12:00)
[2020-04-29 01:23] VITALS: BP 158/83
[2020-04-29 01:59] VITALS: BP 120/85
[2020-04-29] MEDS: PANTOPRAZOLE 40 MG IV IVPush SCH ×2 (04:22→15:57)
[2020-04-29 05:58] LABS: BASOPHILS % (AUTO) 0 % (0-1); EOSINOPHILS % (AUTO) 0 % (1-7); LYMPHOCYTES % (AUTO) 4 % (22-44); MEAN CORPUSCULAR HGB CONC 32.9 g/dL (32.4-35.8); MEAN PLATELET VOLUME 8.3 fL (7.4-10.4); MONOCYTES % (AUTO) 17 % (2-9); NEUTROPHILS % (AUTO) 78 % (42-75); PLATELET COUNT 261 x10^3/uL (130-400); RED BLOOD COUNT 4.27 x10^6/uL (3.82-5.3); RED CELL DISTRIBUTION WIDTH 13.2 % (9.6-15.2)
[2020-04-29 06:03] LABS: ANION GAP 8 mmol/L (5-15); CALCIUM 8.9 mg/dL (8.5-10.1); CHLORIDE 108 mmol/L (98-107)
[2020-04-29 06:14] LABS: ALANINE AMINOTRANSFERASE 11 U/L (12-78); ALKALINE PHOSPHATASE 53 U/L (45-117); BILIRUBIN,TOTAL 0.4 mg/dL (0.2-1.0); CREATININE 1.02 mg/dL (0.55-1.02); TOTAL PROTEIN 6.1 g/dL (6.4-8.2)
[2020-04-29 06:38] LABS: MD NO
[2020-04-29] MEDS: INSULIN LISPRO 100 UNITS/ML, PEN SQ-INSULIN SCH ×4 (08:30→22:11)
[2020-04-29] MEDS: INSULIN GLARGINE 100 UNITS/ML, PEN SQ-INSULIN SCH ×2 (08:30→22:13)
[2020-04-29] MEDS: ESCITALOPRAM 10MG TABLET PO SCH (08:31)
[2020-04-29 09:32] VITALS: BP 159/83
[2020-04-29 13:01] VITALS: BP 152/80
[2020-04-29] MEDS ORDERED: GILENYA MC SCH (15:30)
[2020-04-29] MEDS: SUCRALFATE 1 GM/10 ML UDC PO SCH ×2 (15:58→20:19)
[2020-04-29] MEDS: ENOXAPARIN 40 MG/0.4 ML SQ SCH (15:58)
[2020-04-29 18:38] VITALS: BP 168/78
[2020-04-29 19:29] VITALS: BP 164/91
[2020-04-29] MEDS: ATORVASTATIN 20 MG TABLET PO SCH (20:19)
[2020-04-29] MEDS: ACETAMINOPHEN 325 MG TABLET PO PRN (20:19)
[2020-04-29] MEDS ORDERED: MAALOX/HYOSCYAMINE/LIDOCAINE 45 ML BTL PO ONE (22:00)
[2020-04-30] VITALS: BP 179/99
[2020-04-30 00:59] VITALS: BP 154/80
[2020-04-30] MEDS: SODIUM CHLORIDE 0.9% 1,000 ML IV SCH ×2 (05:25→13:00)
[2020-04-30] MEDS: PANTOPRAZOLE 40 MG IV IVPush SCH ×2 (05:25→16:00)
[2020-04-30 05:41] LABS: CHLORIDE 110 mmol/L (98-107)
[2020-04-30] MEDS: SUCRALFATE 1 GM/10 ML UDC PO SCH ×4 (05:50→22:00)
[2020-04-30 05:55] LABS: ANION GAP 8 mmol/L (5-15); CREATININE 0.74 mg/dL (0.55-1.02)
[2020-04-30] MEDS: INSULIN LISPRO 100 UNITS/ML, PEN SQ-INSULIN SCH ×4 (07:00→21:00)
[2020-04-30 07:39] VITALS: BP 155/91
[2020-04-30] MEDS: GILENYA 0.5 MG PO SCH (09:00)
[2020-04-30] MEDS: INSULIN GLARGINE 100 UNITS/ML, PEN SQ-INSULIN SCH ×2 (09:00→22:11)
[2020-04-30] MEDS: ESCITALOPRAM 10MG TABLET PO SCH (09:00)
[2020-04-30] MEDS: FLUTICASONE NASAL SPRAY 16GM NAS SCH (11:00)
[2020-04-30] MEDS: LORATADINE 10 MG TABLET PO SCH (11:00)
[2020-04-30 12:26] VITALS: BP 168/96
[2020-04-30] MEDS ORDERED: CHLORHEXIDINE 15 ML UDC ONE (14:06)
[2020-04-30] MEDS ORDERED: PROPOFOL 50 ML ONE (14:22)
[2020-04-30] MEDS ORDERED: ONDANSETRON 2MG/ML, 2ML IVPush PRN (14:30)
[2020-04-30] MEDS ORDERED: CHLORHEXIDINE 15 ML UDC MM ONE (14:30)
[2020-04-30] MEDS ORDERED: FENTANYL PF 100 MCG/2ML IV PRN (14:30)
[2020-04-30] MEDS: ENOXAPARIN 40 MG/0.4 ML SQ SCH (16:30)
[2020-04-30] MEDS: POTASSIUM CHLORIDE 20 MEQ TAB.ER.PRT PO SCH (17:00)
[2020-04-30] MEDS: MAALOX/HYOSCYAMINE/LIDOCAINE 45 ML BTL PO PRN ×2 (17:57→22:16)
[2020-04-30] MEDS ORDERED: MORPHINE SULFATE 4 MG/ML, 1ML IVPush PRN (18:00)
[2020-04-30] MEDS ORDERED: hydrALAzine 20 MG/ML, 1ML IV PRN (18:00)
[2020-04-30 19:22] VITALS: BP 146/82
[2020-04-30] MEDS: ATORVASTATIN 20 MG TABLET PO SCH (22:00)
[2020-05-01] MEDS ORDERED: TEMAZEPAM 15 MG CAPSULE ONE (00:12)
[2020-05-01] MEDS: ACETAMINOPHEN 325 MG TABLET PO PRN ×2 (00:13→12:13)
[2020-05-01 00:15] VITALS: BP 157/83
[2020-05-01] MEDS ORDERED: TEMAZEPAM 15 MG CAPSULE PO PRN (00:30)
[2020-05-01 03:58] VITALS: BP 160/72
[2020-05-01] MEDS: PANTOPRAZOLE 40 MG IV IVPush SCH (04:12)
[2020-05-01] MEDS: SUCRALFATE 1 GM/10 ML UDC PO SCH ×2 (06:45→12:13)
[2020-05-01] MEDS: INSULIN LISPRO 100 UNITS/ML, PEN SQ-INSULIN SCH ×2 (07:00→12:15)
[2020-05-01 07:07] VITALS: BP 138/73
[2020-05-01 07:15] VITALS: BP 147/92
[2020-05-01] MEDS: SODIUM CHLORIDE 0.9% 1,000 ML IV SCH ×3 (08:00→15:55)
[2020-05-01] MEDS: POTASSIUM CHLORIDE 20 MEQ TAB.ER.PRT PO SCH ×3 (08:20→12:31)
[2020-05-01] MEDS: ESCITALOPRAM 10MG TABLET PO SCH (08:20)
[2020-05-01] MEDS: LORATADINE 10 MG TABLET PO SCH (08:20)
[2020-05-01] MEDS: GILENYA 0.5 MG PO SCH (08:21)
[2020-05-01 08:56] LABS: ANION GAP 7 mmol/L (5-15); CALCIUM 8.4 mg/dL (8.5-10.1); CHLORIDE 105 mmol/L (98-107); CREATININE 0.54 mg/dL (0.55-1.02)
[2020-05-01] MEDS: INSULIN GLARGINE 100 UNITS/ML, PEN SQ-INSULIN SCH (09:00)
[2020-05-01] MEDS: MAALOX/HYOSCYAMINE/LIDOCAINE 45 ML BTL PO PRN (09:31)
[2020-05-01] MEDS: FLUTICASONE NASAL SPRAY 16GM NAS SCH (09:31)
[2020-05-01] MEDS ORDERED: NYSTATIN 500,000 UNITS/5 ML UDC PO SCH (12:30)
[2020-05-01] MEDS ORDERED: OMEP-110 PO (13:23)
[2020-05-01] MEDS ORDERED: SUCR1ORA5 PO (13:23)
[2020-05-01] MEDS ORDERED: NYST1000 PO (13:23)
[2020-05-01] MEDS ORDERED: ONDA4TAB13 PO (13:23)
[2020-05-01 13:29] VITALS: BP 128/69
== END 2020-05-01 17:54 | disposition home or self-care (01) | DRG 368 ==
LOC: ED 14:01 → EDIP 14:14 → 4NE 23:57
PROVIDERS: ADMIT Internal Medicine; ATTEND Internal Medicine
PROC: 0DB58ZX Excision of Esophagus, Via Natural or Artificial Opening Endoscopic, Diagnostic (ICD-10-PCS; principal; 2020-04-30 14:30)
DX: K21.01 Gastro-esophageal reflux disease with esophagitis, with bleeding (principal); N17.0 Acute kidney failure with tubular necrosis; E11.9 Type 2 diabetes mellitus without complications; Z20.828 Contact with and (suspected) exposure to other viral communicable diseases; K21.9 Gastro-esophageal reflux disease without esophagitis; G35 Multiple sclerosis; K29.00 Acute gastritis without bleeding; K59.00 Constipation, unspecified; K57.90 Diverticulosis of intestine, part unspecified, without perforation or abscess without bleeding; F41.9 Anxiety disorder, unspecified; E87.6 Hypokalemia; K44.9 Diaphragmatic hernia without obstruction or gangrene; I10 Essential (primary) hypertension; E78.5 Hyperlipidemia, unspecified; G47.33 Obstructive sleep apnea (adult) (pediatric); Z85.43 Personal history of malignant neoplasm of ovary; Z91.041 Radiographic dye allergy status; Z88.5 Allergy status to narcotic agent; Z88.8 Allergy status to other drugs, medicaments and biological substances; Z79.4 Long term (current) use of insulin; Z90.49 Acquired absence of other specified parts of digestive tract; Z90.710 Acquired absence of both cervix and uterus; Z86.73 Personal history of transient ischemic attack (TIA), and cerebral infarction without residual deficits; Z79.899 Other long term (current) drug therapy
CPT/HCPCS: 36415; 71045; 74176; 74220; 80048; 80053; 81003; 82962; 83036; 83690; 83735; 84100; 84443; 84484; 85025; 87635; 88305; 93005; 94660; 96361; 96372; 96374; 96375; 99285; G0378; J1650; J2405; J2704; Q9967; C9113; J1815; J2270; J2765; J7030